=== PATIENT | female | born 1975 | race African-American/Black ===

== ENCOUNTER 2021-11-27 18:48 | Emergency (ER) | payer MEDICAID ==
[~2021-11-27] VITALS: Ht 175.3 cm; Wt 98.0 kg
[2021-11-27] MEDS ORDERED: TETANUS, DIPHTHERIA, PERTUSSIS VAC/PF 0.5ML (>10YR OLD) IM ONE (22:30)
[2021-11-27] MEDS ORDERED: IBUPROFEN 400MG TABLET PO ONE (22:30)
[2021-11-27 23:50] VITALS: BP 156/90
== END 2021-11-27 23:51 | disposition home or self-care (01) ==
LOC: ER 18:48
DX: S61.211A Laceration without foreign body of left index finger without damage to nail, initial encounter (principal); W26.0XXA Contact with knife, initial encounter; Y93.89 Activity, other specified; Y92.010 Kitchen of single-family (private) house as the place of occurrence of the external cause
CPT/HCPCS: 12001; 90471; 90715; 99283; A4217; Z7610